=== PATIENT | female | born 1995 | race Caucasian/White ===

== ENCOUNTER 2023-08-20 06:08 | Outpatient (RCR) | payer BC, SELFPAY | END 2023-08-20 23:59 | disposition home or self-care (01) | LOC: RPT 06:08 | PROVIDERS: ATTENDING PHYSICIAN Nurse Practitioner; PRIMARYCARE PHYSICIAN Nurse Practitioner Family | DX: N30.10 Interstitial cystitis (chronic) without hematuria (principal); N94.19 Other specified dyspareunia; R10.2 Pelvic and perineal pain; Z73.6 Limitation of activities due to disability | CPT/HCPCS: 97163; 97530 ==

== ENCOUNTER 2023-09-09 09:18 | Emergency (ER) | payer BC, SELFPAY ==
[2023-09-09 09:27] VITALS: BP 125/78
--- NOTE | 2023-09-09 09:36 | ED.PDOC.TR ---
ED Provider Triage
-
Patient seen by provider in Triage?: Seen in Triage
28 female no significant past medical history presenting emergency department for evaluation of chest discomfort that started a couple days ago noting to be worse when she take her Adderall. Patient had this increased by her primary care provider
but yesterday decided to go back to her usual dose but was still having the symptoms. She does note a dry cough as well as pain worse with deep inspiration. Patient does take oral contraceptives. Labs including D-dimer ordered. EKG done in
triage is nonischemic.
--- NOTE | 2023-09-09 10:54 | ED.GENMED ---
History of Present Illness
General
Chief Complaint: Chest Pain
Time Seen by Provider: 09/09/23 10:51
Travel History
Have you had any contact with someone who has COVID-19?: No
Do you have any symptoms of coronavirus? Fever > 100 degrees, chills, cough, shortness of breath, sore throat, loss of taste or smell, muscle aches, or headache?: No
History of Present Illness
History of Present Illness:
HPI: Patient is been having increasing chest discomfort since Adderall was increased. She then decreased dose but is still having pain. This has been ongoing for the last several days. She did not take any Adderall today but is still having the
discomfort. She had some of breath earlier but currently does not have any shortness of breath. She does report pleuritic discomfort. No family history of premature coronary disease.
EXAM:
GENERAL: Well appearing in no distress
HEENT: Moist oral mucosa
CARDIOVASCULAR: No murmurs, normal heart rate, regular rhythm, mild anterior chest wall tenderness
PULMONARY: No respiratory distress, breath sounds are clear and equal
ABDOMEN: Soft with no peritoneal signs, no tenderness
NEUROLOGIC: Excellent strength all extremities, no coordination deficits
PSYCHIATRIC: Appropriate mental status, normal insight and judgement
EXTREMITIES: Nontender, no edema, moves all extremities equally
SKIN: No rash, no lesions
TIME OF INITIAL ENCOUNTER: 11 AM
NUMBER AND COMPLEXITY OF PROBLEMS ADDRESSED AT THE ENCOUNTER
� Chronic conditions affecting care: Anxiety/depression, has had ITP age 24, CVID
� Acute Exacerbation and/or Progression of Chronic Illness: This is an acute problem
� Differential Diagnosis includes: Costochondritis, doubt pneumonia, pleurisy, PE, highly doubt ND/CAD
AMOUNT AND/OR COMPLEXITY OF DATA TO BE REVIEWED AND ANALYZED
� I performed an independent evaluation of and my interpretation is:
EKG: Sinus 73, normal axis, no acute ST abnormality
CT:
X-rays: Chest x-ray personally reviewed and shows no acute abnormality
Laboratory Studies: D-dimer less than 0.27, CBC including platelet count of 231 is unremarkable, chemistries unremarkable.
Other:
� Review of other/old records: I reviewed the CBCs for the last several years which were relatively unremarkable
� Clinical information was obtained by an independent historian: I spoke to mother at bedside
� Prescriptions/Medications Considered but not given:
� Further testing considered but not performed:
RISK OF COMPLICATIONS AND/OR MORBIDITY OR MORTALITY OF PATIENT MANAGEMENT
� Social determinants of health affecting care: Lives at home
� Discussion with other providers:
� Escalation of care including admission/observation vs risk of discharge considered: Toradol was tried for pain. D-dimer reassuring�no sign for PE. On reassessment at 12:40 PM, she does report improvement after Toradol was
given. Her room air sats are 100%. Suspect noncardiac chest pain I am not so sure that this is related to the Adderall use however I favor more of a musculoskeletal chest wall etiology.
Past History
Past History
ED Past Medical History: Psychiatric (Anxiety/Depression) and Other (ITP at age 24, kidney stones)
ED Past Surgical History: None and Other
Social History
Tobacco: Former smoker
Alcohol: Occasional
Drug: None
Personal: Single
Living: with family
Employment: Employed
Family History
Family History: Other (Noncontributory)
Phy Exam
Physical Exam
Physical Exam:
See HPI
Scores
Heart Score for Chest Pain Patients
STEMI patient?: Not applicable
Course
Orders/Labs/Results
Orders:
Orders
09/09/23 09:19
Electrocardiogram (*1) Urgent
Reason for Study: Chest Pain
09/09/23 09:20
EKG- Treatment ONCE
09/09/23 11:16
Ketorolac [Toradol] 15 mg IV NOW STA
09/09/23 11:18
Complete Blood Count/With Diff Urgent
D-Dimer Urgent
09/09/23 11:53
CR Chest - 2 Views Urgent
Comment:
Reason For Exam: cp
09/09/23 12:09
Comprehensive Metabolic Panel Urgent
Troponin I Urgent
Abnormal Lab Results
09/09/23
11:18
MPV 10.5 H fL
(7.4-10.4)
09/09/23 11:18
09/09/23 12:09
Vital Signs
Initial and Last Documented VS:
Initial Vital Signs
Temp Pulse Resp BP Pulse Ox
98.7 F 74 14 125/78 100
09/09/23 09:27 09/09/23 09:27 09/09/23 09:27 09/09/23 09:27 09/09/23 09:27
Last Documented Vital Signs
Temp Pulse Resp BP Pulse Ox
98.7 F 74 14 125/78 100
09/09/23 09:27 09/09/23 09:27 09/09/23 09:27 09/09/23 09:27 09/09/23 09:27
*Critical Care Note
Total Time (30-74mins, 75-104mins- exclusive of procedures): Not Applicable
ED Attending Note
-
Portions of this chart may have been created with voice recognition software.� Occasional wrong word or��sound alike� substitutions may have occurred due to the inherent limitations of voice recognition software.
Discharge Plan
Departure
Prescriptions:
No Action
folic acid 1 MG tablet
1 mg PO DAILY
lamotrigine [Lamictal] 100 MG tablet
100 mg PO HS
desog-e.estradiol/e.estradiol [Kariva (28)] 0.15-0.02 mgx21 /0.01 mg x 5 Tablet
1 tab PO HS
lamotrigine 25 mg Tablet
50 mg PO DAILY
tacrolimus 0.1 % Ointment
1 applic TOPICAL BIDPRN PRN (Reason: fungal infection)
Patient Comments:
02/19/23 patient applies cream to the affected area of the vagina
ibuprofen 200 mg Tablet
400 mg PO DAILYPRN PRN (Reason: mild pain)
clobetasol 0.05 % Ointment
1 applic TOPICAL BID
Patient Comments:
02/19/23 patient applies cream to the affected area of the vagina
amoxicillin-pot clavulanate 875-125 mg Tablet
1 tab PO BID
Patient Comments:
02/19/23 filled on 02/17/23 #20
phenazopyridine [Pyridium] 200 mg tablet
200 mg PO TID PRN (Reason: Pain) Qty: 6 0RF
Referrals:
Marce Morris CRNP [Family Provider] -
Interventions
Interventions:
*ED COVID-19 Vaccine History Last Done: 09/09/23 09:31
Discharge Date and Time
Print Language: TANZANIAN
[2023-09-09] MEDS: TORADOL 15 MG IV (11:31)
[2023-09-09 11:49] LABS: D-Dimer < 0.27 ug/mlFEU (0.00-0.50)
[2023-09-09 11:53] LABS: % Basophils 0.9 % (0-2); % Eosinophils 1.9 % (0-6); % Immature Granulocytes 0.2 % (0-0.5); % Lymphocytes 21.7 % (20.5-51.1); % Monocytes 5.9 % (1.7-9.3); % Neutrophils 69.4 % (42.2-75.2); Absolute Basophils 0.1 10^3/uL (0-0.2); Absolute Eosinophils 0.1 10^3/uL (0-0.7); Absolute Lymphocytes 1.3 10^3/uL (1.2-3.4); Absolute Monocytes 0.3 10^3/uL (0.1-0.6); Hematocrit 40.3 % (37.0-47.0); Hemoglobin 13.7 g/dL (12.0-16.0); Mean Corpuscular Hgb 29.6 pg (27.0-31.0); Mean Platelet Volume 10.5 fL (7.4-10.4); Nucleated Red Blood Cells % 0 %; Platelet Count 231 10^3/uL (130-400); Red Blood Cell Count 4.63 10^6/uL (4.20-5.40); Red Cell Dist. Width 12.5 % (11.5-14.5); White Blood Cell Count 5.8 10^3/uL (4.8-10.8)
[2023-09-09 12:37] LABS: ALT (SGPT) 16 U/L (0-35); AST (SGOT) 26 U/L (14-36); Alkaline Phosphatase 41 U/L (38-126); Blood Urea Nitrogen 9 mg/dl (7-17); Calcium 9.2 mg/dl (8.4-10.2); Carbon Dioxide 28 mmol/L (22-30); Chloride 103 mmol/L (98-107); Glucose 80 mg/dl (70-99); Sodium 139 mmol/L (135-145); Total Bilirubin 0.5 mg/dl (0.2-1.3); Total Protein 6.6 g/dl (6.3-8.2); eGFR > 60.00
[2023-09-09 12:48] LABS: Troponin I < 0.012 ng/ml
[2023-09-09 13:52] VITALS: BP 117/70
== END 2023-09-09 13:54 | disposition home or self-care (01) ==
LOC: EMR 09:18
PROVIDERS: Physician Assistant Medical; EMERGENCY PHYSICIAN Emergency Medicine; FAMILY PHYSICIAN Nurse Practitioner Family
DX: M94.0 Chondrocostal junction syndrome [Tietze] (principal); Z87.442 Personal history of urinary calculi; Z87.891 Personal history of nicotine dependence
CPT/HCPCS: 99283; 96374; 71046; 80053; 84484; 85025; 85379; 93005

== ENCOUNTER 2023-10-04 07:52 | Outpatient (RCR) | payer BC, SELFPAY | END 2023-10-04 23:59 | disposition home or self-care (01) | LOC: RPT 07:52 | PROVIDERS: ATTENDING PHYSICIAN Nurse Practitioner; PRIMARYCARE PHYSICIAN Nurse Practitioner Family | DX: N30.10 Interstitial cystitis (chronic) without hematuria (principal); N94.19 Other specified dyspareunia; R10.2 Pelvic and perineal pain; Z73.6 Limitation of activities due to disability | CPT/HCPCS: 97014; 97110; 97140; 97530 ==

== ENCOUNTER 2023-10-04 19:21 | Emergency (ER) | payer BC, SELFPAY ==
[2023-10-04 19:24] VITALS: BP 120/82
[2023-10-04 19:49] LABS: % Basophils 0.5 % (0-2); % Immature Granulocytes 0.2 % (0-0.5); % Lymphocytes 26.4 % (20.5-51.1); % Monocytes 7.7 % (1.7-9.3); % Neutrophils 63.2 % (42.2-75.2); Absolute Eosinophils 0.1 10^3/uL (0-0.7); Absolute Lymphocytes 1.5 10^3/uL (1.2-3.4); Absolute Monocytes 0.4 10^3/uL (0.1-0.6); Absolute Neutrophils 3.5 10^3/uL (1.4-6.5); Hematocrit 37.1 % (37.0-47.0); Mean Corpuscular Volume 85.7 fL (81.0-99.0); Nucleated Red Blood Cells % 0 %; Platelet Count 277 10^3/uL (130-400); Red Blood Cell Count 4.33 10^6/uL (4.20-5.40); Red Cell Dist. Width 12.4 % (11.5-14.5); White Blood Cell Count 5.6 10^3/uL (4.8-10.8)
[2023-10-04 19:58] LABS: Erythrocyte Sed Rate 29 mm/hour (0-20)
[2023-10-04 20:13] LABS: ALT (SGPT) 20 U/L (0-35); AST (SGOT) 30 U/L (14-36); Alkaline Phosphatase 57 U/L (38-126); Blood Urea Nitrogen 10 mg/dl (7-17); Calcium 10.3 mg/dl (8.4-10.2); Carbon Dioxide 27 mmol/L (22-30); Chloride 100 mmol/L (98-107); Glucose 87 mg/dl (70-99); Sodium 137 mmol/L (135-145); Total Bilirubin 0.5 mg/dl (0.2-1.3); Total Protein 7.7 g/dl (6.3-8.2); eGFR > 60.00
[2023-10-04 20:22] LABS: HCG, Serum Qualitative Screen Negative
[2023-10-04 20:29] VITALS: BMI 28.4
[2023-10-04 23:03] LABS: Troponin I < 0.012 ng/ml
--- NOTE | 2023-10-04 23:37 | ED.GENMED ---
History of Present Illness
General
Chief Complaint: Chest Pain
Time Seen by Provider: 10/04/23 20:47
History of Present Illness
History of Present Illness:
28-year-old female with ongoing chest pain for weeks. Nonpleuritic. Nonexertional. No radiation. Patient here mostly out of concern for an elevated inflammatory marker and the concern that this could be a sign of a cardiac issue. She in
addition has nonspecific musculoskeletal like complaints have been going on for weeks.
Past History
Past History
ED Past Medical History: Psychiatric (Anxiety/Depression) and Other (ITP at age 24, kidney stones)
ED Past Surgical History: None and Other
Social History
Tobacco: Former smoker
Alcohol: Occasional
Drug: None
Personal: Single
Living: with family
Employment: Employed
Family History
Family History: Other (Noncontributory)
Phy Exam
Physical Exam
Physical Exam:
GENERAL: Alert and oriented in no apparent distress
EYE: Orbits normal.
NECK: Supple
ENT: Pharynx without erythema
CARDIAC: Regular rate and rhythm without any obvious murmurs.
LUNGS: Clear breath sounds,normal
ABDOMEN: Soft, without focal tenderness or distention
NEUROLOGICAL: Alert and oriented , grossly non-focal
SKIN: Warm and dry, no rash or lesion, no discoloration, skin intact.
MUSCULOSKELETAL: No edema,no deformity.Good color
PSYCH: Normal and appropriate interaction.
Scores
Heart Score for Chest Pain Patients
STEMI patient?: No
History: Slightly or Non-Suspicious
ECG: Normal
Age: </= 45 years
Risk Factors: No Risk Factors
Troponin: </= Normal Limit
Heart Score for Chest Pain Patients: 0
Heart Score Risk: 2.5% MACE over next 6 weeks
Course
Orders/Labs/Results
Orders:
Orders
10/04/23 19:22
Electrocardiogram (*1) Urgent
Reason for Study: Chest Pain
EKG- Treatment ONCE
10/04/23 19:43
CMP [Comprehensive Metabolic Panel] Urgent
CRP [C-Reactive Protein] Urgent
Complete Blood Count/With Diff Urgent
Erythrocyte Sed Rate Urgent
HCG, Serum Qualitative Screen Urgent
10/04/23 19:58
Add On- LAB Urgent
Tests Added?: hcg qual
10/04/23 21:01
CT Chest Pe Study Urgent
Comment:
Reason For Exam: Recurring chest pain
10/04/23 22:26
Troponin I Urgent
Comment: ADD ON
Abnormal Lab Results
10/04/23
19:43
ESR 29 H mm/hour
(0-20)
Calcium 10.3 H mg/dl
(8.4-10.2)
10/04/23 19:43
10/04/23 19:43
Vital Signs
Initial and Last Documented VS:
Initial Vital Signs
Temp Pulse Resp BP Pulse Ox
98.1 F 82 18 120/82 100
10/04/23 19:24 10/04/23 19:24 10/04/23 19:24 10/04/23 19:24 10/04/23 19:24
Last Documented Vital Signs
Temp Pulse Resp BP Pulse Ox
98.1 F 82 18 120/82 97
10/04/23 19:24 10/04/23 19:24 10/04/23 19:24 10/04/23 19:24 10/04/23 20:17
*Pulse Oximetry
Patient hypoxic: no
*EKG
Interpreted by ED Provider?: Yes
Interpretation: normal
Comparison EKG: no changes
Heart Rate: 84
Rate: normal
Rhythm: sinus
[place]: normal axis
Interval: normal interval
QRS Pattern: normal QRS
Ischemia: no ischemia
*Critical Care Note
Total Time (30-74mins, 75-104mins- exclusive of procedures): Not Applicable
Update Note
Update Note:
No serious etiology found for patient's symptoms. Nonspecific inflammatory marker elevation likely an underlying autoimmune issue. Stable for discharge to follow-up. Copy of CT report given to patient
ED Attending Note
-
Portions of this chart may have been created with voice recognition software.� Occasional wrong word or��sound alike� substitutions may have occurred due to the inherent limitations of voice recognition software.
Discharge Plan
Departure
Patient Disposition: Home (Routine Discharge)
Date of Disposition: 10/04/23
Time of Disposition: 23:39
Patient with high blood pressure during this ER visit?: No
Discharge Problem:
Recurrent anterior chest pain, Suspect underlying autoimmune disorder
Instructions: Chest Pain, Adult ED
Prescriptions:
No Action
folic acid 1 MG tablet
1 mg PO DAILY
lamotrigine [Lamictal] 100 MG tablet
50 mg PO HS
lamotrigine 25 mg Tablet
100 mg PO DAILY
tacrolimus 0.1 % Ointment
1 applic TOPICAL BIDPRN PRN (Reason: fungal infection)
Patient Comments:
02/19/23 patient applies cream to the affected area of the vagina
clobetasol 0.05 % Ointment
1 applic TOPICAL BID
Patient Comments:
02/19/23 patient applies cream to the affected area of the vagina
norgestimate-ethinyl estradiol [Precious] 0.25-35 mg-mcg Tablet
1 tab PO DAILY
alprazolam [Xanax] 1 mg Tablet
1 mg PO BID PRN (Reason: anxiety)
dextroamphetamine-amphetamine [Adderall XR] 10 mg Capsule,Extended Release 24hr
10 mg PO DAILY
Rx Instructions:
has not taken for weeks
Referrals:
Marce Morris CRNP [Family Provider] - Follow up in 2-3 days
Activity Restrictions/Additional Instructions:
Follow-up closely with your primary physician
Interventions
Interventions:
*Risk Screen - Suicide Last Done: 10/04/23 20:17
*General Assessment Last Done: 10/04/23 20:17
*Neglect/Abuse Screening Last Done: 10/04/23 20:17
ED- Fall Risk Assessment Last Done: 10/04/23 20:17
*ED COVID-19 Vaccine History Last Done: 10/04/23 20:17
ED- Cardiac Assessment Last Done: 10/04/23 20:17
Discharge Date and Time
Print Language: YORUBA
[2023-10-05 00:08] VITALS: BP 106/50
== END 2023-10-05 00:08 | disposition home or self-care (01) ==
LOC: EMR 19:21
PROVIDERS: EMERGENCY PHYSICIAN Emergency Medicine; FAMILY PHYSICIAN Nurse Practitioner Family
DX: R07.89 Other chest pain (principal); F41.9 Anxiety disorder, unspecified; F32.A Depression, unspecified; D69.3 Immune thrombocytopenic purpura; Z87.442 Personal history of urinary calculi; Z87.891 Personal history of nicotine dependence; Z88.1 Allergy status to other antibiotic agents; Z88.2 Allergy status to sulfonamides; Z88.8 Allergy status to other drugs, medicaments and biological substances
CPT/HCPCS: 99284; 71275; 80053; 84484; 84703; 85025; 85652; 86140; 93005; Q9967